=== PATIENT | female | born 1960 | race Caucasian/White ===

== ENCOUNTER 2016-10-03 13:06 | Emergency (ER) | payer OTHER ==
[2016-10-03 13:22] VITALS: BP 145/97; PULSE 89; TEMP 98.5; BMI 40.7
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
[2016-10-03] MEDS ORDERED: IBUPROFEN 600 MG TABLET (FP) PO ONE ×2 (14:56→14:59)
== END 2016-10-03 15:04 | disposition home or self-care (01) ==
LOC: FER 13:06
DX: S40.022A Contusion of left upper arm, initial encounter (principal); S16.1XXA Strain of muscle, fascia and tendon at neck level, initial encounter; V48.5XXA Car driver injured in noncollision transport accident in traffic accident, initial encounter; W22.11XA Striking against or struck by driver side automobile airbag, initial encounter; Y93.89 Activity, other specified; Y92.410 Unspecified street and highway as the place of occurrence of the external cause; I10 Essential (primary) hypertension
CPT/HCPCS: 71020-TC; 73060-TC-LT; 99282-25

== ENCOUNTER 2021-04-03 07:40 | Day surgery (SDC) | payer OTHER ==
[2021-04-01 12:56] VITALS: BMI 37.5
[2021-04-03] MEDS ORDERED: MIDAZOLAM HCL 2 MG/2 ML SINGLE DOSE VIAL ONE ×2 (08:22)
[2021-04-03 09:31] VITALS: TEMP 97.2
[2021-04-03 09:33] VITALS: BP 150/70; PULSE 79
== END 2021-04-03 09:33 | disposition home or self-care (01) ==
LOC: FASU-ENDO 07:40
PROVIDERS: ATTEND Internal Medicine Gastroenterology
PROC: 0DJD8ZZ Inspection of Lower Intestinal Tract, Via Natural or Artificial Opening Endoscopic (ICD-10-PCS; principal; 2021-04-03 08:29)
DX: Z12.11 Encounter for screening for malignant neoplasm of colon (principal); Z83.71 Family history of colonic polyps; K57.30 Diverticulosis of large intestine without perforation or abscess without bleeding